=== PATIENT | male | born 1950 ===

== ENCOUNTER 2017-07-13 05:55 | Inpatient (IN) | payer MEDICARE ==
[2017-07-13] VITALS (17 sets, daily range): BP systolic 113–144; BP diastolic 65–82; BMI 27.4
[~2017-07-13] VITALS: Ht 180.3 cm; Wt 88.0 kg
[2017-07-13] MEDS ORDERED: ACETAMINOPHEN325 MG PO (08:48)
[2017-07-13] MEDS ORDERED: TYLENOL650 MG RC ×2 (08:49→08:50)
[2017-07-13] MEDS ORDERED: PROVENTIL/2.5 MG/3 M INH (08:51)
[2017-07-13] MEDS ORDERED: AMPHOGEL PO (08:55)
[2017-07-13] MEDS ORDERED: ARICEPT5 MG PO (08:56)
[2017-07-13] MEDS ORDERED: LIPITOR10 MG PO (08:57)
[2017-07-13] MEDS ORDERED: ROCALTROL0.5 MCG PO (08:58)
[2017-07-13] MEDS ORDERED: DULCOLAX5 MG PO (08:58)
[2017-07-13] MEDS ORDERED: CARDURA4 MG PO (08:59)
[2017-07-13] MEDS ORDERED: CARBIDOPA-LEVO1 EAC4 PO (08:59)
[2017-07-13] MEDS ORDERED: COREG25 MG PO (09:00)
[2017-07-13] MEDS ORDERED: FOLIC ACID1 MG PO (09:01)
[2017-07-13] MEDS ORDERED: HUMALOG 30100 UNITS/ (09:02)
[2017-07-13] MEDS ORDERED: IMODIUM2 MG PO (09:02)
[2017-07-13] MEDS ORDERED: LEVEMIR100 U/M1 (09:03)
[2017-07-13] MEDS ORDERED: LOVENOX30 MG/0.3 SC (09:04)
[2017-07-13] MEDS ORDERED: SYNTHROID25 MCG PO (09:04)
[2017-07-13] MEDS ORDERED: MAALOX ADVANCE355 ML PO (09:05)
[2017-07-13] MEDS ORDERED: MYFORTIC180 MG PO (09:06)
[2017-07-13] MEDS ORDERED: PROGRAF5 MG PO (09:07)
[2017-07-13] MEDS ORDERED: PEPCID20 MG PO (09:07)
[2017-07-13] MEDS ORDERED: PHENERGAN25 M1 PO ×2 (09:08→09:09)
[2017-07-13] MEDS ORDERED: PHENERGAN25 M1 (09:09)
[2017-07-13] MEDS ORDERED: PROSCAR5 MG PO (09:12)
[2017-07-13] MEDS ORDERED: SODIUM BICARBO325 MG PO (09:13)
[2017-07-13] MEDS ORDERED: KIONEX15 GM/60 M PO (09:17)
[2017-07-13] MEDS ORDERED: ZOFRAN ODT4 MG/UDTAB PO (09:18)
[2017-07-13] MEDS ORDERED: NORVASC10 MG PO (09:18)
[2017-07-13] MEDS ORDERED: HYDRALAZINE HCL50 MG PO (09:19)
[2017-07-13] MEDS ORDERED: GUAIFENESI100 MG/5 M PO (09:19)
[2017-07-13] MEDS ORDERED: ULTRAM50 MG PO (09:20)
[2017-07-13] MEDS ORDERED: PREDNISONE10 MG PO (09:20)
[2017-07-13] MEDS ORDERED: TRAZODONE HCL50 MG PO (09:21)
[2017-07-13] MEDS ORDERED: HUMALOG 30100 UNITS/ SC (10:04)
[2017-07-13 11:34] LABS: HEMATOCRIT 25.2 % (42.0-54.0); MCH 26.8 pg (26.0-34.0); MCHC 31.7 g/dL (31.0-37.0); MCV 84.3 fL (80.0-100.0); MEAN PLATELET VOLUME 9.9 fL (7.4-10.4); PLATELET COUNT 120 10x3/uL (130-400); RBC 2.99 10x6/uL (4.20-6.10); RDW 15.6 % (11.5-14.5); WBC 2.7 10x3/uL (4.8-10.8)
[2017-07-13 11:46] LABS: ALBUMIN 2.1 g/dL (3.4-5.0); ANION GAP 7.5 mmol/L (8-16); BILIRUBIN - TOTAL 0.47 mg/dL (0.2-1.3); CALCIUM 7.7 mg/dL (8.5-10.1); CARBON DIOXIDE 31.2 mmol/L (21.0-32.0); CREATININE - SERUM 4.6 mg/dL (0.6-1.3); PROTEIN - SERUM 5.9 g/dL (6.4-8.2)
[2017-07-13 11:55] LABS: POTASSIUM - SERUM 2.7 mmol/L (3.5-5.1)
[2017-07-13 12:46] LABS: EOSINOPHILS 2 % (0-7); LYMPHOCYTES 37 % (15-50); MONOCYTES 8 % (2-11); NEUTROPHILS 51 % (40-80); PLATELET ESTIMATE NORMAL
[2017-07-13 14:25] LABS: ANION GAP 9.4 mmol/L (8-16); CALCIUM 7.7 mg/dL (8.5-10.1); CARBON DIOXIDE 30.5 mmol/L (21.0-32.0); CREATININE - SERUM 4.5 mg/dL (0.6-1.3); MAGNESIUM - SERUM 2.1 mg/dL (1.8-2.4)
[2017-07-13 14:27] LABS: POTASSIUM - SERUM 2.9 mmol/L (3.5-5.1)
[2017-07-13 21:41] LABS: POTASSIUM - SERUM 4.7 mmol/L (3.5-5.1)
[2017-07-14] VITALS (17 sets, daily range): BP systolic 91–135; BP diastolic 23–88; Ht 180.3 cm; Wt 88.0 kg
[2017-07-14 04:06] LABS: BASOPHILS 0 % (0-2); HEMATOCRIT 24.8 % (42.0-54.0); HEMOGLOBIN 7.9 g/dL (13.5-17.5); IMMATURE GRANULOCYTES 1.2 % (0-5); LYMPHOCYTES 26.7 % (15-50); MCH 27.1 pg (26.0-34.0); MCHC 31.9 g/dL (31.0-37.0); MCV 84.9 fL (80.0-100.0); MONOCYTES 16.1 % (2-11); PLATELET COUNT 141 10x3/uL (130-400); RBC 2.92 10x6/uL (4.20-6.10); RDW 15.8 % (11.5-14.5); WBC 2.6 10x3/uL (4.8-10.8)
[2017-07-14 04:28] LABS: ANION GAP 14.1 mmol/L (8-16); CALCIUM 7.6 mg/dL (8.5-10.1); CARBON DIOXIDE 27.8 mmol/L (21.0-32.0); CREATININE - SERUM 5.3 mg/dL (0.6-1.3); POTASSIUM - SERUM 4.9 mmol/L (3.5-5.1)
[2017-07-15 04:00] VITALS: BP 139/67
[2017-07-15 05:44] LABS: BASOPHILS 0 % (0-2); EOSINOPHILS 2.4 % (0-7); HEMATOCRIT 25.9 % (42.0-54.0); HEMOGLOBIN 8.2 g/dL (13.5-17.5); IMMATURE GRANULOCYTES 0.4 % (0-5); LYMPHOCYTES 31.5 % (15-50); MCH 27.1 pg (26.0-34.0); MCHC 31.7 g/dL (31.0-37.0); MCV 85.5 fL (80.0-100.0); MEAN PLATELET VOLUME 10.2 fL (7.4-10.4); MONOCYTES 11.4 % (2-11); NEUTROPHILS 54.3 % (40-80); PLATELET COUNT 155 10x3/uL (130-400); RBC 3.03 10x6/uL (4.20-6.10); WBC 2.5 10x3/uL (4.8-10.8)
[2017-07-15 05:52] LABS: CALCIUM 7.8 mg/dL (8.5-10.1); CARBON DIOXIDE 28.4 mmol/L (21.0-32.0); CREATININE - SERUM 4.3 mg/dL (0.6-1.3)
[2017-07-15 07:21] LABS: ANION GAP 12.7 mmol/L (8-16)
[2017-07-15 07:22] LABS: POTASSIUM - SERUM 4.1 mmol/L (3.5-5.1)
[2017-07-15 08:00] VITALS: BP 132/64
[2017-07-15] MEDS ORDERED: LEVEMIR100 U/M1 SQ (09:37)
[2017-07-15 10:22] LABS: HEPATITIS C ANTIBODY <0.1 (0.0-0.9)
[2017-07-15 11:39] VITALS: BP 138/74
[2017-07-15 15:52] VITALS: BP 136/69
== END 2017-07-15 19:35 | disposition home or self-care (01) | DRG 638 ==
LOC: D.ICU 05:55 → D.M2 07:53
PROVIDERS: Internal Medicine; Internal Medicine Nephrology
DX: E11.649 Type 2 diabetes mellitus with hypoglycemia without coma (principal); I13.2 Hypertensive heart and chronic kidney disease with heart failure and with stage 5 chronic kidney disease, or end stage renal disease; T86.12 Kidney transplant failure; E11.22 Type 2 diabetes mellitus with diabetic chronic kidney disease; I50.9 Heart failure, unspecified; N18.6 End stage renal disease; R56.9 Unspecified convulsions; Z99.2 Dependence on renal dialysis; Z79.4 Long term (current) use of insulin; G20 Parkinson's disease; F02.80 Dementia in other diseases classified elsewhere, unspecified severity, without behavioral disturbance, psychotic disturbance, mood disturbance, and anxiety; E87.6 Hypokalemia; I35.0 Nonrheumatic aortic (valve) stenosis; D63.1 Anemia in chronic kidney disease